=== PATIENT | male | born 1985 | race Hispanic/Latino ===

== ENCOUNTER → 2024-08-20 | Outpatient (CLI) | LOC: M SOG 10:07 | PROVIDERS: ATTEND Orthopaedic Surgery Hand Surgery | DX: M79.641 Pain in right hand (principal); M79.642 Pain in left hand ==

== ENCOUNTER → 2024-12-03 | Outpatient (CLI) | payer OTHER | LOC: M PLAIMG 14:38 | PROVIDERS: ATTEND Internal Medicine Pulmonary Disease | DX: R05.9 Cough, unspecified (principal) ==